=== PATIENT | female | born 1960 | race Hispanic/Latino ===

== ENCOUNTER 2022-01-26 11:50 | Emergency (ER) | payer OTHER ==
[2022-01-26 11:52] VITALS: BP 152/80
[2022-01-26] MEDS ORDERED: ACETAMINOPHEN 500 MG TABLET ONE (13:49)
[2022-01-26] MEDS ORDERED: ACETAMINOPHEN 500 MG TABLET PO ONE (14:00)
[2022-01-26] MEDS ORDERED: ACET-66 PO (14:10)
[2022-01-26] MEDS ORDERED: P-EP-94 PO (14:10)
[2022-01-26] MEDS ORDERED: BENZ-39 PO (14:10)
== END 2022-01-26 14:17 | disposition home or self-care (01) ==
LOC: EDH 11:50
DX: J10.1 Influenza due to other identified influenza virus with other respiratory manifestations (principal); Z20.822 Contact with and (suspected) exposure to COVID-19
CPT/HCPCS: 99283; 87635; 87880; 87804 ×2; C9803

== ENCOUNTER 2023-03-18 15:13 | Emergency (ER) | payer OTHER, SELFPAY ==
[~2023-03-18] VITALS: Ht 167.6 cm; Wt 81.6 kg
[~2023-03-18 15:13] MED LIST: ACET-66 PO; BENZ-39 PO; P-EP-94 PO
[2023-03-18 15:45] LABS: BASOPHILS # (AUTO) 0.06 K/uL (0.00-0.20); BASOPHILS % (AUTO) 0.8 % (0.0-5.0); EOSINOPHILS # (AUTO) 0.17 K/uL (0.00-0.70); EOSINOPHILS % (AUTO) 2.2 % (0.0-8.0); HEMATOCRIT 41.3 % (36-48); IMMATURE GRANULOCYTE ABSOLUTE 0.06 K/uL (0-1); LYMPHOCYTES # (AUTO) 2.6 K/uL (1.0-4.8); LYMPHOCYTES % (AUTO) 34.1 % (21.0-51.0); MEAN CORPUSCULAR HEMOGLOBIN 29.9 pg (27.0-33.0); MEAN CORPUSCULAR HGB CONC 33.2 g/dL (32.0-36.0); MEAN CORPUSCULAR VOLUME 90.2 fL (79-99); MONOCYTES # (AUTO) 0.6 K/uL (0.1-1.0); NEUTROPHILS # (AUTO) 4.2 K/uL (1.8-7.7); NEUTROPHILS % (AUTO) 54.1 % (40.0-77.0); PLATELET COUNT (AUTO) 333 K/uL (130-400); RED BLOOD CELL COUNT(AUTO) 4.58 MIL/uL (4.00-5.50); WHITE BLOOD COUNT (AUTO) 7.8 K/uL (4.8-10.8)
[2023-03-18 16:09] LABS: CREATININE 0.8 mg/dL (0.5-1.5); POTASSIUM 4.3 mmol/L (3.5-5.1)
[2023-03-18 16:14] LABS: ALBUMIN 3.5 g/dL (3.5-5.0); BILIRUBIN,TOTAL 0.9 mg/dL (0.2-1.0); TOTAL PROTEIN, SERUM 7.5 g/dL (6.0-8.3)
[2023-03-18 18:00] LABS: ADD UA MICROSCOPIC YES; APPEARANCE,URINE CLEAR (CLEAR); BILIRUBIN,URINE NEGATIVE (NEGATIVE); COLOR,URINE LIGHT-YELLOW (YELLOW); GLUCOSE, URINE (UA) NEGATIVE (NEGATIVE); KETONES,URINE NEGATIVE (NEGATIVE); LEUKOCYTE ESTERASE ,URINE 75 Leu/uL (NEGATIVE); NITRATE,URINE NEGATIVE (NEGATIVE); OCCULT BLOOD,URINE NEGATIVE (NEGATIVE); PROTEIN,URINE NEGATIVE (NEGATIVE); UROBILINOGEN,URINE 0.2 mg/dL (0.2-1.0)
[2023-03-18 18:29] LABS: BACTERIA,URINE RARE /HPF (None Seen); MUCUS,URINE RARE LPF (None Seen); RBC,URINE 0-1 /HPF (0-1); SQUAMOUS EPITHELIAL CELL,UR FEW /HPF (0-2)
[2023-03-18] MEDS ORDERED: IOHEXOL-350 75 ML VIAL IV ONE (19:36)
[2023-03-18] MEDS ORDERED: SIME180C35 PO (19:59)
[2023-03-18 20:06] VITALS: BP 131/68; PULSE 72; RESP 16; O2SAT 98
== END 2023-03-18 20:22 | disposition home or self-care (01) ==
LOC: EDH 15:13
DX: K42.9 Umbilical hernia without obstruction or gangrene (principal); K57.30 Diverticulosis of large intestine without perforation or abscess without bleeding; Z79.899 Other long term (current) drug therapy; Z90.49 Acquired absence of other specified parts of digestive tract; Z90.710 Acquired absence of both cervix and uterus; Z98.890 Other specified postprocedural states
CPT/HCPCS: 99285; 74177; 71045; 80053; 83690; 85025; 87088; 81001; 36415; 93005; Q9967

== ENCOUNTER 2023-09-26 12:55 | Emergency (ER) | payer MEDICARE, OTHER ==
[~2023-09-26] VITALS: Ht 162.6 cm; Wt 85.3 kg
[~2023-09-26 12:55] MED LIST changes: +SIME180C35 PO
[2023-09-26 14:10] LABS: BASOPHILS # (AUTO) 0.07 K/uL (0.00-0.20); BASOPHILS % (AUTO) 0.7 % (0.0-5.0); EOSINOPHILS # (AUTO) 0.21 K/uL (0.00-0.70); EOSINOPHILS % (AUTO) 2.2 % (0.0-8.0); HEMATOCRIT 42.3 % (36-48); IMMATURE GRANULOCYTE ABSOLUTE 0.09 K/uL (0-1); LYMPHOCYTES # (AUTO) 2.9 K/uL (1.0-4.8); LYMPHOCYTES % (AUTO) 30.4 % (21.0-51.0); MEAN CORPUSCULAR HEMOGLOBIN 29.6 pg (27.0-33.0); MEAN CORPUSCULAR HGB CONC 33.3 g/dL (32.0-36.0); MEAN CORPUSCULAR VOLUME 88.9 fL (79-99); MONOCYTES # (AUTO) 0.7 K/uL (0.1-1.0); MONOCYTES % (AUTO) 7.3 % (3.0-13.0); NEUTROPHILS # (AUTO) 5.6 K/uL (1.8-7.7); NEUTROPHILS % (AUTO) 58.5 % (40.0-77.0); PLATELET COUNT (AUTO) 318 K/uL (130-400); RED BLOOD CELL COUNT(AUTO) 4.76 MIL/uL (4.00-5.50); RED CELL DISTRIBUTION WIDTH 12.6 % (11.0-15.5); WHITE BLOOD COUNT (AUTO) 9.5 K/uL (4.8-10.8)
[2023-09-26] MEDS: 0.9%NACL 1000ML 1,000 ML IV ONE (14:18)
[2023-09-26] MEDS: ONDANSETRON 4MG INJ IVP ONE (14:19)
[2023-09-26] MEDS: MORPHINE 2 MG SYG IVP ONE (14:19)
[2023-09-26 14:24] LABS: CREATININE 0.6 mg/dL (0.5-1.0)
[2023-09-26 14:29] LABS: B-TYPE NATRIURETIC PEPTIDE 31 pg/mL (0-100)
[2023-09-26 14:34] LABS: ALBUMIN 3.5 g/dL (3.5-5.0); BILIRUBIN,TOTAL 0.7 mg/dL (0.2-1.0); TOTAL PROTEIN, SERUM 7.4 g/dL (6.0-8.3)
[2023-09-26 16:22] VITALS: BP 130/61; PULSE 50; RESP 16; O2SAT 98
[2023-09-26 16:55] LABS: APPEARANCE,URINE CLEAR (CLEAR); BILIRUBIN,URINE NEGATIVE (NEGATIVE); COLOR,URINE LIGHT-YELLOW (YELLOW); GLUCOSE, URINE (UA) NEGATIVE (NEGATIVE); KETONES,URINE NEGATIVE (NEGATIVE); LEUKOCYTE ESTERASE ,URINE 250 Leu/uL (NEGATIVE); NITRATE,URINE NEGATIVE (NEGATIVE); OCCULT BLOOD,URINE NEGATIVE (NEGATIVE); PROTEIN,URINE NEGATIVE (NEGATIVE); UROBILINOGEN,URINE 0.2 mg/dL (0.2-1.0)
[2023-09-26 17:01] LABS: ADD UA MICROSCOPIC YES
[2023-09-26 17:06] LABS: MUCUS,URINE RARE LPF (None Seen); SQUAMOUS EPITHELIAL CELL,UR FEW /HPF (0-2)
== END 2023-09-26 17:05 | disposition home or self-care (01) ==
LOC: EDH 12:55
DX: K42.9 Umbilical hernia without obstruction or gangrene (principal); K76.0 Fatty (change of) liver, not elsewhere classified; K76.89 Other specified diseases of liver; Z79.899 Other long term (current) drug therapy; Z98.890 Other specified postprocedural states; Z90.49 Acquired absence of other specified parts of digestive tract; Z90.710 Acquired absence of both cervix and uterus
CPT/HCPCS: 99285; 74176; 96374; 96375; 71045; 96361; 84484; 80053; 83880; 83690; 85025; 87086; 82010; 81001; 36415; 93005; J2270; J7030; J2405

== ENCOUNTER → 2024-12-16 | Outpatient (CLI) | payer MEDICARE | END | disposition home or self-care (01) | LOC: RAH 10:13 | PROVIDERS: ATTEND Family Medicine | DX: Z12.31 Encounter for screening mammogram for malignant neoplasm of breast (principal) | CPT/HCPCS: 77067 ==

== ENCOUNTER → 2025-01-20 | Outpatient (CLI) | payer MEDICARE ==
--- NOTE | 2025-01-20 14:08 | HMCIMG ---
Right BREAST ULTRASOUND: Graft clinical history follow-up for density for prior mammogram from 01/20/2025. Finding: Real-time examination of the [right/left] breast demonstrates homogeneous echotexture throughout the breast without evidence of focal solid masses. The right breast between 1-2 o'clock there is a small cyst measuring 0.4 x 0.3 x 0.6 mm. There is no solid hypoechoic lesion seen in the right breast. The right axilla has 2 simple benign-appearing lymph node measuring 1.9 x 0.9 x 1.5 cm the second lymph node measuring 0.9 x 0.7 x 0.9 cm.. IMPRESSION: There are concern demonstrates a small cyst as described above between 1 and 2:00.. I would recommend annual mammography with tomography.. FINAL ASSESSMENT: ACR: BI-RAD- 2. Benign: Also a negative assessment; finding(s) benign abnormalities. Management: Routine mammography screening. Likelihood of Cancer: Essentially 0% likelihood of malignancy.
--- NOTE | 2025-01-20 14:13 | HMCIMG ---
DIGITAL right DIAGNOSTIC MAMMOGRAM Technique: The digital mammographic examination of right breast coned-down compression view in craniocaudal, mediolateral oblique views along with CAD was obtained. Ultrasound of the right breast was also obtained. History: This is a 64 years year-old female 7, para5 Ab2 . Patient has no family history of breast cancer. Patient has no complaint Patient is here for follow-up for mammogram from 12/16/2024 which demonstrated a density in the right breast. Reference:Prior mammogram from 12/16/2024 is available.. Breast composition: Breast composition B: There are scattered areas of fibroglandular density. Finding: The digital mammographic examination of right breast coned-down compression views in craniocaudal and mediolateral oblique view along with CAD demonstrates a density which ultrasound demonstrate to be a small simple cyst. There is also seen solitary macrocalcification. There is benign vascular calcification suggesting of atherosclerotic changes.. There is no evidence of any dendritic mass, cluster microcalcification or architectural distortion. The retromammary fat appears to be normal. IMPRESSION: The density in the right breast between 1 and 2:00 appears to be a small cyst. NO RADIOGRAPHIC EVIDENCE OF MALIGNANT CHANGES. WE WOULD RECOMMEND ANNUAL FOLLOW UP WITH TOMOSYNTHESIS UNLESS OTHERWISE CLINICALLY INDICATED. FINAL ASSESSMENT: ACR: BI-RAD- 2. Benign: Also a negative assessment; finding(s) benign abnormalities. Management: Routine mammography screening. Likelihood of Cancer: Essentially 0% likelihood of malignancy. NOTE: IF A WORK-UP OF THIS PATIENT LEADS TO A BIOPSY, PLEASE FORWARD A COPY OF THE PATHOLOGY REPORT TO OUR OFFICE REQUIRED BY [facility] EFFECTIVE DECEMBER 30, 1993. A NEGATIVE MAMMOGRAM SHOULD NOT PRECLUDE BIOPSY OF A CLINICALLY PALPABLE SUSPICIOUS MASS, 10% OF BREAST CANCERS ARE MAMMOGRAPHICALLY OCCULT. THIS MAMMOGRAPHY FACILITY IS FULLY ACCREDITED BY THE [employer]OD AND [employer]UG [employer]ATION (FDA). THANK YOU FOR THIS REFERRAL.
== END | disposition home or self-care (01) ==
LOC: RAH 08:30
PROVIDERS: ATTEND Family Medicine
DX: N60.01 Solitary cyst of right breast (principal); R92.321 Mammographic fibroglandular density, right breast; R92.1 Mammographic calcification found on diagnostic imaging of breast
CPT/HCPCS: 76641; 77065